=== PATIENT | female | born 1965 | race Caucasian/White ===

== ENCOUNTER 2018-05-13 07:13 | Day surgery (SDC) | payer OTHER, SELFPAY ==
[2018-05-13 07:27] VITALS: BP 123/76; PULSE 62; RESP 14; TEMP 37.3; O2SAT 100; BMI 27.0
--- NOTE | 2018-05-13 08:39 | PCM.HP.STD ---
Problem List (1) Multiple lipomas Status: Acute History of Present Illness Date of Admission: 05/13/18 The patient is a 52 year old F multiple lipomas. She has a enlarging left proximal upper arm lipoma and a left scapular lipoma. I previously saw her in 2017. Since that time they have enlarged. She was seen in the office on April 04, 2018 by physician clinical data assistant Maria Elena Stern. At that time the patient because of progressive enlargement and intermittent tenderness elected to proceed with definitive excision. She continues to run daily for exercise. She otherwise enjoys good health. She is intolerant to multiple narcotics. She runs her supportive bra irritates particularly the scapular lesion. Past Medical History Past Medical History (Chronic Problems): Chronic Problems (Last Reviewed 04/04/18 @ 09:37 by Nicole Jones) Overweight (BMI 25.0-29.9) (Chronic) Migraine (Chronic) usually with menstruation Medical History: Medical History (Last Reviewed 04/04/18 @ 09:37 by Nicole Jones) Overweight (BMI 25.0-29.9) (Chronic) E66.3 Migraine (Chronic) G43.909 usually with menstruation Allergies penicillin G Allergy (Unknown, Verified 05/06/18 13:18) Unknown ketorolac [From Toradol] Adverse Reaction (Verified 05/13/18 07:30) UNCONSCIOUS FOR HRS AFTER ADMINISTRATION NARCOTICS Adverse Reaction (Uncoded 05/06/18 13:18) Other Home Medications: Ambulatory Orders Medication Instructions Recorded Sumatriptan [Imitrex] 6 mg SC .X1 PRN 05/06/18 Surgical History: Surgical History (Last Reviewed 04/04/18 @ 09:37 by Nicole Jones) Hx of bilateral breast reduction surgery (Acute) Z98.890 1999 Hx of hysterectomy (Acute) Z90.710 2007 Hx of appendectomy (Acute) Z90.49 1980 History of tonsillectomy and adenoidectomy (Acute) Z98.890 1980 Surgical History: - - Appendectomy, hysterectomy, breast reduction, T+A. 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 Paternal Family History: Family History (Last Reviewed 04/04/18 @ 09:37 by Nicole Jones) Father Myocardial infarction Cancer History Items: Diabetes, Heart Disease, Hypertension Review of Systems Constitutional: Denies: Anorexia Cardiovascular: Denies: Chest Pain Respiratory: Reports: - - Positive. Denies: Cough Gastrointestinal: Denies: Abdominal Pain Musculoskeletal: Reports: Arm Pain, - - Discomfort left arm at site of lipoma Neurological: Denies: Balance problems VTE Information - Inpt Only VTE Present on Admission: No Patient Problems: Active and Suspected Problems (Last Reviewed 04/04/18 @ 09:37 by Nicole Jones) Multiple lipomas (Acute) - Physical Exam General: Alert, Oriented x3, Cooperative, No apparent distress HEENT: Atraumatic Lungs: Clear to auscultation Cardiovascular: Regular rate, Regular Rhythm Abdomen: Bowel Sounds Present, Soft, Non Tender Extremities: - - Left upper arm rubbery slightly mobile 3 x 3.5 cm subcutaneous mass. Left lateral scapular partly mobile 8 x 6 cm mass. Vital Signs Temp Pulse Resp BP Pulse Ox 99.2 F H 62 14 123/76 H 100 05/13/18 07:27 05/13/18 07:27 05/13/18 07:27 05/13/18 07:27 05/13/18 07:27 Oxygen Delivery Method Room Air Weight: 167 lb 8.821 oz Body Mass Index (BMI) 27.0 Finger Stick Blood Glucose 88 Assessment/Plan All Active Problems (Last Reviewed 04/04/18 @ 09:37 by Nicole Jones) Multiple lipomas (Acute) Hx of bilateral breast reduction surgery (Acute) Hx of hysterectomy (Acute) Hx of appendectomy (Acute) History of tonsillectomy and adenoidectomy (Acute) Plan complete excision of both of these subcutaneous masses. She is aware of the technique, benefits, risks, alternatives. I may require a drain for the scapular lesion. She has had an opportunity to ask and have questions answered. We will proceed at her discretion. Suleiman Iglesias M.D., F.A.C.S.
--- NOTE | 2018-05-13 08:43 | HP.PCM_ITS ---
Problem List (1) Multiple lipomas Status: Acute History of Present Illness Date of Admission: 05/13/18 The patient is a 52 year old F multiple lipomas. She has a enlarging left proximal upper arm lipoma and a left scapular lipoma. I previously saw her in 2017. Since that time they have enlarged. She was seen in the office on April 04, 2018 by physician sales office assistant Maria Elena Stern. At that time the patient because of progressive enlargement and intermittent tenderness elected to proceed with definitive excision. She continues to run daily for exercise. She otherwise enjoys good health. She is intolerant to multiple narcotics. She runs her supportive bra irritates particularly the scapular lesion. Past Medical History Past Medical History (Chronic Problems): Chronic Problems (Last Reviewed 04/04/18 @ 09:37 by Nicole Jones) Overweight (BMI 25.0-29.9) (Chronic) Migraine (Chronic) usually with menstruation Medical History: Medical History (Last Reviewed 04/04/18 @ 09:37 by Nicole Jones) Overweight (BMI 25.0-29.9) (Chronic) E66.3 Migraine (Chronic) G43.909 usually with menstruation Allergies penicillin G Allergy (Unknown, Verified 05/06/18 13:18) Unknown ketorolac [From Toradol] Adverse Reaction (Verified 05/13/18 07:30) UNCONSCIOUS FOR HRS AFTER ADMINISTRATION NARCOTICS Adverse Reaction (Uncoded 05/06/18 13:18) Other Home Medications: Ambulatory Orders Medication Instructions Recorded Sumatriptan [Imitrex] 6 mg SC .X1 PRN 05/06/18 Surgical History: Surgical History (Last Reviewed 04/04/18 @ 09:37 by Nicole Jones) Hx of bilateral breast reduction surgery (Acute) Z98.890 1999 Hx of hysterectomy (Acute) Z90.710 2007 Hx of appendectomy (Acute) Z90.49 1980 History of tonsillectomy and adenoidectomy (Acute) Z98.890 1980 Surgical History: - - Appendectomy, hysterectomy, breast reduction, T+A. Psychiatric History: No pertinent psych hx REGIONAL MEDICAL DIRECTOR History: No pertinent REGIONAL MEDICAL DIRECTOR history Smoking Status: Never smoker Tobacco Use: Non-smoker - *Family History Maternal Family History: Family History (Last Reviewed 04/04/18 @ 09:37 by Nicole Jones) Father Myocardial infarction Cancer History Items: - - Family maternal history of MTHFR gene mutations but unclear mutation. Paternal Family History: Family History (Last Reviewed 04/04/18 @ 09:37 by Nicole Jones) Father Myocardial infarction Cancer History Items: Diabetes, Heart Disease, Hypertension Review of Systems Constitutional: Denies: Anorexia Cardiovascular: Denies: Chest Pain Respiratory: Reports: - - Positive. Denies: Cough Gastrointestinal: Denies: Abdominal Pain Musculoskeletal: Reports: Arm Pain, - - Discomfort left arm at site of lipoma Neurological: Denies: Balance problems VTE Information - Inpt Only VTE Present on Admission: No Patient Problems: Active and Suspected Problems (Last Reviewed 04/04/18 @ 09:37 by Nicole Jones) Multiple lipomas (Acute) - Physical Exam General: Alert, Oriented x3, Cooperative, No apparent distress HEENT: Atraumatic Lungs: Clear to auscultation Cardiovascular: Regular rate, Regular Rhythm Abdomen: Bowel Sounds Present, Soft, Non Tender Extremities: - - Left upper arm rubbery slightly mobile 3 x 3.5 cm subcutaneous mass. Left lateral scapular partly mobile 8 x 6 cm mass. Vital Signs Temp Pulse Resp BP Pulse Ox 99.2 F H 62 14 123/76 H 100 05/13/18 07:27 05/13/18 07:27 05/13/18 07:27 05/13/18 07:27 05/13/18 07:27 Oxygen Delivery Method Room Air Weight: 167 lb 8.821 oz Body Mass Index (BMI) 27.0 Finger Stick Blood Glucose 88 Assessment/Plan All Active Problems (Last Reviewed 04/04/18 @ 09:37 by Nicole Jones) Multiple lipomas (Acute) Hx of bilateral breast reduction surgery (Acute) Hx of hysterectomy (Acute) Hx of appendectomy (Acute) History of tonsillectomy and adenoidectomy (Acute) Plan complete excision of both of these subcutaneous masses. She is aware of the technique, benefits, risks, alternatives. I may require a drain for the scapular lesion. She has had an opportunity to ask and have questions answered. We will proceed at her discretion. Suleiman Iglesias M.D., F.A.C.S.
--- NOTE | 2018-05-13 08:54 | DCINST_ITS ---
Discharge Diet: Light diet - advance as tolerated - if you have questions about your diet instructions, please talk to you doctor. Discharge Activity: May Not Drive - for 1 week or while taking narcotic pain medicine. May shower in (days): 1 Lifting Restrictions: 10 pounds Call your doctor if your incision/area has: Continuous Slow Oozing, Sudden Increased Bleeding, Increased Pain/ Swelling, Increased Redness, Foul Smelling Discharge Call your doctor if you observe: Fever of 101 or Higher Suture Line Care: Avoid Pulling/Pushing, Avoid Pinching/Bending Additional Dressing/Incision Instructions:: Change or remove dressing in 4 days. Leave steri-strips in place for 1 week. Allergies/Adverse Reactions: Allergies penicillin G Allergy (Unknown, Verified 05/06/18 13:18) Unknown ketorolac [From Toradol] Adverse Reaction (Verified 05/13/18 07:30) UNCONSCIOUS FOR HRS AFTER ADMINISTRATION NARCOTICS Adverse Reaction (Uncoded 05/06/18 13:18) Other Medications to take at Discharge Sumatriptan [Imitrex] 6 mg SC .X1 PRN 05/06/18 Primary Care Physician: Ion Perez MD [Primary Care Provider] - Test Results: Test results from this visit will be discussed in further detail at your follow- up appointment, if applicable. Please Follow Up With: Suleiman Iglesias MD - [phone] When: Call to make an appointment to be seen on Sunday for sutures
--- NOTE | 2018-05-13 09:15 | LIP_PTH ---
PATIENT: NOEMÍ GONZÁLES LOC: [facility] – [place], [place] U#:[id number] AGE/SX: 52/F ROOM: RE05/13/[address]: Dr. Suleiman Iglesias MD : 1965 BED: DIS: 05/13/2018 SPEC #: [id number] RECD: 05/13/18 11:43 STATUS: EDUARD REJyoti #: [id number] ARBEN: 05/13/18 09:[address]: Suleiman Iglesias DEPT: SURGICAL PATHOLOGY RECD BY: Shayne Benoit ENTERED: 05/13/18 12:57 SP TYPE: LIPOMA OTHR DR: Dr. Ion Perez MD Tissues: A - Soft tissues, NOS B - Soft tissues, NOS Procedures: Surgery Specimen Level III HEADER OPERATION: Excision subcutaneous mass, scapula and upper extremity PRE-OP DIAGNOSIS: Subcutaneous masses x2, left upper extremity, left scapula TISSUE SUBMITTED: A - Subfascial lipoma left upper extremity, B - Subfascial lipoma left scapula MICROSCOPIC DIAGNOSIS A. Subfascial lipoma left upper extremity, excisional biopsy: Mature adipose tissue, consistent with lipoma. B. Subfascial lipoma left scapula, excisional biopsy: Mature adipose tissue, consistent with lipoma. NISA:sigifredo 05/14/18 MICROSCOPIC DESCRIPTION Slides are reviewed. GROSS DESCRIPTION A - Received in fixative is one container labeled with the patient's name and designated subfascial lipoma left upper extremity. The specimen consists of a piece of schwartz soft tissue measuring 3 x 1.5 x 1 cm. Sections reveal yellow adipose cut surfaces without area of hemorrhage, necrosis or cystic degeneration. The entire specimen is submitted in two cassettes. B - Received in fixative is one container labeled with the patient's name and designated subfascial lipoma left scapula. The specimen consists of a piece of schwartz-yellow adipose tissue which is partly disrupted measuring 9.5 x 8 x 3 cm. Sections reveal yellow adipose cut surfaces without area of hemorrhage, necrosis or cystic degeneration. Car Mechanic sections are submitted in two cassettes. / NISA:sigifredo 05/13/18 TC:1 CPT: 22177 x2
[2018-05-13] MEDS: Bupivacaine Mpf 0.5% 30 ML VIAL (09:46)
--- NOTE | 2018-05-13 10:16 | PCM.OPRPT ---
Problem List (1) Multiple lipomas Status: Acute Report of Operation Date of Procedure: 05/13/18 Pre-Operative Diagnosis: Left upper arm subcutaneous lipoma. Left scapular back subcutaneous lipoma Post-Operative Diagnosis: Left upper arm subfascial lipoma. Left scapular back subfascial lipoma Surgery/Procedure Performed:: Excision left proximal upper arm subfascial lipoma and excision of left scapular back subfascial lipoma Description of Surgical Findings:: Timeout and informed consent was obtained. 52-year-old female was taken the operating room. She underwent general anesthesia. She was placed a right lateral decubitus position. Axillary roll and pelvic support was provided. Left arm support was provided. Right arm padding was performed with gel pad. The left upper arm and scapular back were sterilely prepped and draped. Left upper arm was addressed first with the proximal upper arm and a 2.5 cm slightly oblique incision was created. Sharp and blunt dissection was used to identify what initially was felt to be a subcutaneous lipoma but there was evidence of deep penetration. I performed some very slight muscle splitting in order to identify the depth and then excise this. There was some vascular supply that I secured with interrupted 3-0 Vicryl. This part of the dissection extended subfascially. Hemostasis was intact. I approximated the tissue layers with multiple interrupted 3-0 Vicryl sutures completing the subcutaneous tissue down. Then I used a 4-0 Monocryl in a running septic either fashion. I then used simple sutures of 5-0 nylon. Attention was now drawn to the left scapular back. I made an oblique 7.2 cm incision sharp dissection carried down through the subcu tissue hemostasis and electrocautery immediately then again a component of what was felt to be mostly a subcutaneous lipoma was identified but it became very apparent that there was much larger than anticipated and extended proximally length and the incision a small amount dissected proximally went subfascially used electrocautery and I felt that was able to completely excise that the bulk of the lesion. Hemostasis again of vascular supply was secured with interrupted 3-0 Vicryl suture ligatures. The subcutaneous tissue was was then pleaded together to obliterate the deep space. Multiple interrupted 3-0 Vicryls were placed. Then the subcutaneous tissue approximately the same and then an additional suture line running subcuticular 4-0 Monocryl was placed. The skin edges were approximated with simple sutures of 3-0 nylon. Both incision areas were treated with 0.5% Marcaine a total of 30 cc was used. Telfa and OpSite dressings applied. Sponge and instrument and needle counts were reported to be certain correct. Left upper arm lesion measured 2.5 x 1.5 cm with a 2.5 cm long incision. The left scapular lesion measured 9.5 x 5 cm with a incision length of 7.2 cm. Both specimens were submitted in formalin for analysis Specimens include the lipomas. Drains none. Blood loss minimal. Suleiman Iglesias M.D., F.A.C.S. Type of Anesthesia:: General Anesthesiologist: Garrett Torrez
[2018-05-13 10:24] VITALS: BP 123/76; BP 126/88; PULSE 62; RESP 16; TEMP 36.4; O2SAT 99
[2018-05-13 10:45] VITALS: BP 123/76; BP 133/83; PULSE 58; RESP 16; O2SAT 100
[2018-05-13 10:58] VITALS: BP 123/76; BP 131/87; PULSE 55; RESP 16; O2SAT 99
[2018-05-13 11:05] VITALS: BP 115/84; BP 123/76; PULSE 55; RESP 16; TEMP 36.2; O2SAT 99
[2018-05-13 12:26] VITALS: BP 120/82; BP 123/76; PULSE 60; RESP 16; TEMP 36.2; O2SAT 99
== END 2018-05-13 12:15 | disposition home or self-care (01) ==
LOC: SDC 07:14 → AC 07:16
PROVIDERS: Family Provider Family Medicine; PCP Family Medicine; Referring Provider Surgery; Visit Provider Surgery
PROC: (CPT 23073; principal; 2018-05-13 09:00)
DX: D17.9 Benign lipomatous neoplasm, unspecified (principal); G43.909 Migraine, unspecified, not intractable, without status migrainosus; E66.3 Overweight; Z68.27 Body mass index [BMI] 27.0-27.9, adult; Z79.899 Other long term (current) drug therapy; Z78.0 Asymptomatic menopausal state; Z88.0 Allergy status to penicillin
CPT/HCPCS: 01610; 23073; 24076; 88304; J7120; J2405

== ENCOUNTER 2020-02-10 07:24 | Day surgery (SDC) | payer BC, SELFPAY ==
[2020-02-03 07:45] VITALS: BMI 26.4
[2020-02-10] VITALS (8 sets, daily range): BP systolic 108–127; BP diastolic 65–86; PULSE 65–76; RESP 16; TEMP 36.2–36.9; O2SAT 99–100; BMI 26.2
--- NOTE | 2020-02-10 08:01 | PCM.HP.BLA ---
Problem List (1) Colitis Status: Acute History and Physical Date of Admission: 02/10/20 take Visit Reasons: Hospital F/U Colitis Chief Complaint: N/T TO HANDS AND FACE, MIGRAINE CATALAN Allergies penicillin G Allergy (Unknown, Verified 02/03/20 07:48) Unknown ketorolac [From Toradol] Adverse Reaction (Verified 02/03/20 07:48) UNCONSCIOUS FOR HRS AFTER ADMINISTRATION NARCOTICS Adverse Reaction (Uncoded 02/03/20 07:48) Other Medications ciprofloxacin HCl 500 mg tablet 500 mg PO BID 02/03/20 [History Confirmed 02/03/20] metronidazole 500 mg tablet 500 mg PO BID 02/03/20 [History Confirmed 02/03/20] PFSH Medical History Overweight (BMI 25.0-29.9) (Chronic) Migraine (Chronic) Surgical History Hx of bilateral breast reduction surgery (Acute) Hx of hysterectomy (Acute) Hx of appendectomy (Acute) History of tonsillectomy and adenoidectomy (Acute) Family History Father Myocardial infarction Cancer Skin cancer Social History (Updated 02/03/20 @ 07:[address] Suleiman Iglesias MD) Smoking Status: Never smoker second hand exposure: No alcohol intake: current alcohol intake frequency: holidays/special occasions only substance use type: does not use caffeine: Yes what type of physical activity do you participate in: running frequency: 5-6 times per week duration: 60-90 minutes/day seatbelt use: always HPI HPI HPI: NOEMÍ GONZÁLES, is a 54 F who presents to the office today for surgical consultation regarding abdominal pain and suspected colitis. She was hospitalized at [facility] January 28, 2020 with acute abdominal pain. By report CT imaging suggested colitis at the hepatic flexure and nonspecific enlarged iliac lymph nodes. The patient had a brief stay. Her white blood cell count admission was 12,000 and resolved. She is now referred for surgical consultation and potential need for colonoscopy. The patient is referred by her primary care physician Dr. Ion Perez and a written copy of my surgical consult recommendations will be returned to him. She has been on oral ciprofloxacin and metronidazole and feels improved. Current she has no abdominal pain. No fever or chills or sweats or nausea or vomiting or bright red blood per rectum or melena. She has never had a previous colonoscopy. There is no family history of colon cancer. She otherwise enjoys a healthy lifestyle. She states that she had been eating a significant minus sweet corn and wonders whether this could have aggravated her situation. She jogs daily. She is not sure whether this could be contributory to the enlarged iliac lymph nodes. She has not had any unexpected weight loss. As noted she otherwise feels good and this was a sudden onset event. HPI HPI HPI: NOEMÍ GONZÁLES, is a 54 F who presents to the office today for Exam Const General: cooperative, healthy appearing, comfortable, no acute distress Nutritional Appearance: average body habitus Orientation: alert, awake HENMT Head: normal to inspection Eyes General: appearance normal, both eyes and all related structures Resp Effort & Inspection: normal respiratory effort Auscultation: clear to auscultation bilaterally Cardio Rate: regular rate Rhythm: regular rhythm GI Palpation: soft, no hepatosplenomegaly Skin General: no rashes or lesions noted Neuro Cognition: normal cognition Extrem General: no calf tenderness Psych Affect: normal affect Assessment & Plan Problems 1. Colitis K52.9 2. Adenopathy R59.1 Plan Acute colitis undetermined etiology. Patient is never had a previous colonoscopy. I recommend a colonoscopy with possible biopsy or polypectomy is indicated. Clinically she is improving rapidly. I propose scheduling the colonoscopy for next week. We will perform this on a monitor and stage care. She is aware of the technique, benefit, risk and alternatives. I do not suspect that the enlarged iliac nodes are secondary to the acute colitis. I would suspect that the mesenteric nodes would have been enlarged. However the patient jogs daily. I wonder whether these are simply reactive changes. We will try to get him a copy of her disc. It seems reasonable perhaps that just a routine future imaging follow-up would be appropriate as she is completely asymptomatic at this point. Copy: Dr. Ion Iglesias M.D., F.A.C.S. Orders Orders: Colonoscopy Today K52.9 Coding Level of Care Code 07308 Diagnoses Colitis K52.9 Adenopathy R5 I have re-examined the patient. There are no clinical changes since date of exam. Procedure Criteria Procedure Type: Elective COVID Risk Discussion: The surgeon/proceduralist and patient have discussed in detail the risk of exposure to and/or potential harm posed by the COVID-19 virus with having a surgery/procedure at this time versus the risk of delaying the surgery/procedure. It is not possible to know either the risk of delaying the surgery or procedure or chance of getting an infection with perfect accuracy, but a joint decision was made between the patient and the surgeon/proceduralist to proceed at this time with the scheduled surgery/procedure as indicated on the consent form.
[2020-02-10] MEDS: Lactated Ringers 1,000 ML 100 ML IV ×2 (08:19→09:10)
--- NOTE | 2020-02-10 08:30 | COLBX_PTH ---
PATIENT: NOEMÍ GONZÁLES LOC: [place] U#:[id number] AGE/SX: 54/F ROOM: RE02/10/[address]: Dr. Suleiman Iglesias MD : 1965 BED: DIS: 02/10/2020 SPEC #: [id number] RECD: 02/10/20 09:41 STATUS: EDUARD MARIKA #: [id number] ARBEN: 02/10/20 08:[address]: Suleiman Iglesias DEPT: SURGICAL PATHOLOGY RECD BY: Hernandez Wheeler ENTERED: 02/10/20 11:07 SP TYPE: COLON BX JAMILA DR: Dr. Ion Perez MD Tissues: COLON BIOPSY Procedures: Surgery Specimen Level IV HEADER OPERATION: Colonoscopy (MAC) PRE-OP DIAGNOSIS: Colitis TISSUE SUBMITTED: Hepatic flexure biopsy MICROSCOPIC DIAGNOSIS Colon at hepatic flexure, biopsy: No pathologic change. No evidence of colitis. AM:sigifredo 02/11/20 MICROSCOPIC DESCRIPTION Slides are reviewed. GROSS DESCRIPTION Received in fixative is one container labeled with the patient's name and designated hepatic flexure biopsy. The specimen consists of multiple irregular fragments of light schwartz soft tissue that in aggregate measure 0.8 x 0.5 x 0.1 cm. The specimen is totally submitted in one cassette. / SJ:rg 02/10/20 TC:5 CPT: 87428
--- NOTE | 2020-02-10 09:02 | OP.COLON_ITS ---
Patient Name: Ethel Ferris Procedure Date: 02/10/2020 8:26 AM Date of : 1965 Age: 54 Procedure: Colonoscopy Indications: Abnormal CT of the GI tract, Suspected colitis Providers: Suleiman Iglesias MD Referring MD: Ion Perez Medicines: See the Anesthesia note for documentation of the administered medications Patient Profile: Last Colonoscopy: none. The patient's first colonoscopy is today. Complications: No immediate complications. Procedure: Pre-Anesthesia Assessment: - Prior to the procedure, a History and Physical was performed, and patient medications and allergies were reviewed. The patient's tolerance of previous anesthesia was also reviewed. The risks and benefits of the procedure and the sedation options and risks were discussed with the patient. All questions were answered, and informed consent was obtained. Prior Anticoagulants: The patient has taken no previous anticoagulant or antiplatelet agents. ASA Grade Assessment: II - A patient with mild systemic disease. After reviewing the risks and benefits, the patient was deemed in satisfactory condition to undergo the procedure. After I obtained informed consent, the scope was passed under direct vision. Throughout the procedure, the patient's blood pressure, pulse, and oxygen saturations were monitored continuously. The Colonoscope was introduced through the anus and advanced to the cecum, identified by appendiceal orifice and ileocecal valve. The colonoscopy was performed with moderate difficulty due to a tortuous colon. Successful completion of the procedure was aided by changing the patient to a supine position and using manual pressure. The patient tolerated the procedure well. The quality of the bowel preparation was good. The ileocecal valve and the appendiceal orifice were photographed. Scope In: 8:35:08 AM Scope Withdrawal Time 0 hours 6 minutes 39 seconds Scope Out: 8:54:37 AM Total Procedure Duration Time 0 hours 19 minutes 29 seconds Findings: Hemorrhoids were found on perianal exam. The sigmoid colon was moderately tortuous. Advancing the scope required changing the patient to a supine position and using manual pressure. The hepatic flexure appeared normal. Biopsies were taken with a cold forceps for histology. The exam was otherwise without abnormality. Impression: - Hemorrhoids found on perianal exam. - Tortuous colon. - The hepatic flexure is normal. Biopsied. - The examination was otherwise normal. Recommendation: - Discharge patient to home. - Resume previous diet. - Continue present medications. - Repeat colonoscopy in 10 years for screening purposes. - Telephone my office for pathology results in 1 week. No evidence for current colitis. Biopsies pending. Procedure Code(s): --- Professional --- 18925, Colonoscopy, flexible; with biopsy, single or multiple Diagnosis Code(s): --- Professional --- K64.9, Unspecified hemorrhoids R93.3, Abnormal findings on diagnostic imaging of other parts of digestive tract Q43.8, Other specified congenital malformations of intestine CPT copyright 2017 [employer]. All rights reserved. The codes documented in this report are preliminary and upon heel seat sander review may be revised to meet current compliance requirements. Suleiman Iglesias MD 02/10/2020 9:02:23 AM This report has been signed electronically. Number of Addenda: 0 Note Initiated On: 02/10/2020 8:26 AM
--- NOTE | 2020-02-10 09:02 | OP.CCLET_ITS ---
02/10/2020 Ion Perez Re : Colonoscopy procedure for Ethel Ferris Dear Ana This procedure was performed on Monday, February 10, 2020. My impressions and recommendations are as follows: Impressions : - Hemorrhoids found on perianal exam. - Tortuous colon. - The hepatic flexure is normal. Biopsied. - The examination was otherwise normal. Recommendations : - Discharge patient to home. - Resume previous diet. - Continue present medications. - Repeat colonoscopy in 10 years for screening purposes. - Telephone my office for pathology results in 1 week. No evidence for current colitis. Biopsies pending. My findings are described in the full procedure note, which is enclosed. If I can be of further assistance, please feel free to contact me at Doctor phone number(s): Work: . Sincerely, Suleiman Iglesias MD 02/10/2020 9:02:23 AM This report has been signed electronically.
== END 2020-02-10 10:06 | disposition home or self-care (01) ==
LOC: EN 07:24 → AC 07:25
PROVIDERS: Anesthesiology; PCP Family Medicine; Referring Provider Family Medicine; Visit Provider Surgery
PROC: 0DJD8ZZ Inspection of Lower Intestinal Tract, Via Natural or Artificial Opening Endoscopic (ICD-10-PCS; CPT 45378; principal; 2020-02-10 08:25)
DX: R10.9 Unspecified abdominal pain (principal); R93.3 Abnormal findings on diagnostic imaging of other parts of digestive tract; Q43.8 Other specified congenital malformations of intestine; K64.9 Unspecified hemorrhoids; Z11.59 Encounter for screening for other viral diseases; R59.9 Enlarged lymph nodes, unspecified; Z78.0 Asymptomatic menopausal state; Z79.899 Other long term (current) drug therapy
CPT/HCPCS: 45380; 87635; 88305; C9803; J7120; U0003